=== PATIENT | male | born 1975 | race Caucasian/White ===

== ENCOUNTER 2017-03-18 03:14 | Observation (INO) | payer BC ==
[2017-03-18 03:25] VITALS: BMI 33.7
[2017-03-18] MEDS: ASPIRIN PO SCH ×2 (03:30→09:15)
[2017-03-18 03:42] LABS: BASOPHILS # (AUTO) 0.2 X10^3/uL (0.0-0.1); BASOPHILS % (AUTO) 1.9 % (0.2-1.0); EOSINOPHILS # (AUTO) 0.1 x10^3/uL (0.0-0.2); EOSINOPHILS % (AUTO) 1.8 % (0.9-2.9); HEMATOCRIT 45.8 % (42.0-54.0); HEMOGLOBIN 15.9 g/dL (13.5-18.0); LYMPHOCYTES # (AUTO) 2.5 X10^3/uL (1.3-2.9); MEAN CORPUSCULAR HEMOGLOBIN 28.9 pg (27.0-34.0); MEAN CORPUSCULAR HGB CONC 34.8 g/dL (33.0-35.0); MEAN CORPUSCULAR VOLUME 83.2 fL (80.0-100.0); MEAN PLATELET VOLUME 10.2 fL (7.4-11.0); MONOCYTES # (AUTO) 0.6 x10^3/uL (0.3-0.8); MONOCYTES % (AUTO) 7.8 % (0.0-13.0); NEUTROPHILS # (AUTO) 4.8 x10^3/uL (2.2-4.8); NEUTROPHILS % (AUTO) 58.5 % (42.0-75.0); PLATELET COUNT 116 X10^3/uL (150.0-450.0); RED BLOOD COUNT 5.51 X10^6/uL (4.7-6.0); RED CELL DISTRIBUTION WIDTH 14.3 % (11.6-16.5); WHITE BLOOD COUNT 8.2 X10^3/uL (3.6-10.0)
[2017-03-18] MEDS ORDERED: NITROSTAT SL PRN (03:44)
--- NOTE | 2017-03-18 03:47 | DR.CP ---
HPI - Time Seen Time seen: 03:40 - PCP Primary Care Physician: JEANNE - Complaint Chief Complaint Doctor Comments: Patient states [place] started getting mid-sternal chest pain radiating to the left arm with tingling of the fingers, pain radiated to the left jaw. There was o diaphoresis. This occured at 1700 on yesterday. He has no history of cardiopulmonary disease. There is no family history of cardiac disease. Chief Complaint:: CHEST PAIN , LEFT JAW PAIN STARTED EARLIER TODAY. NAUSEA,NO VOMITING. DENIES ANY SHORTNESS OF BREATH. - Source History Provided: Patient - Mode of Arrival Mode of Arrival: Ambulatory - Timing Onset of Chief Complaint: 03/18/17 - Location Chest Pain Radiation Location: Left Jaw, Left Shoulder, Back, Neck - Associated Signs and Symptoms Associated Signs and Symptoms: Nausea/Vomiting PMH - PMH Past Medical History: Yes Past Medical History: Dyslipidemia, GERD, Hypertension, Hyperthyroidism, PUD Past Surgical History: Yes Past Surgical History Comment: ACDIFF SURGERY IN [place]. HERNIA SURGERY AT - Family History History of Family Medical Conditions: Yes Family Medical History: Hypertension - Social History Does patient currently use any type of tobacco product: No Have you used tobacco products in the last 12 months: No Type of Tobacco Use: None Alcohol Use: None Do you use any recreational Drugs:: No Lives With: Spouse, Family Lives Where: Home - infectious screening In the last 2 months have you had wt loss of >10#?: NO Have you had fever, night sweats or hemotysis?: No Have you traveled outside the country in the last 6 months?: No Isolation: Standard ROS - Review of Systems Constitutional: See HPI. negative: Diaphoresis Eyes: No Symptoms Reported ENTM: No Symptoms Reported Respiratoy: No Symptoms Reported Cardiovascular: Chest Pain Gastrointestinal/Abdominal: No Symptoms Reported Genitourinary: No Symptoms Reported Neurological: Numbness (left hand) Musculoskeletal: No Symptoms Reported Integumentary: No Symptoms Reported Hematologic/Lymphatic: No Symptoms Reported Endocrine: See HPI (hyperthyroid) Psychiatric: No Symptoms Reported All Other Systems: Reviewed and Negative PE - Vitals Vitals: Pulse Rate [Right Brachial] 63 Pulse Rate 70 Respiratory Rate 18 Blood Pressure [Right Arm] 128/89 Blood Pressure 148/72 O2 Sat by Pulse Oximetry 98 - General Limitations: No Limitations General Appearance: Alert, In No Apparent Distress - Head Head Exam: Normal Inspection, Atraumatic - Eyes Eye exam: Normal Appearance, PERRL, EOMI - ENT ENT Exam: Normal Exam - Chest Chest Inspection: Normal Inspection - Respiratory Respiratory Exam: Normal Lung Sounds Bilat Respiratory Exam: Bilateral Clear to Auscultation - Cardiovascular Cardiovascular Exam: Regular Rate, Normal Rhythm Pulse: Normal Edema: Normal - Abdominal Exam Abdominal Exam: Normal Inspection, Normal Bowel Sounds Abdominal Tenderness: negative: RUQ, RLQ, LUQ, LLQ, Epigastrium, Suprapubic, Diffuse, Mild, Moderate, Severe, Other - Extremities Extremities Exam: Normal Inspection - Back Back Exam: Normal Inspection, Full ROM - Neurologic Neurological Exam: Alert, Oriented X3, CN II-XII Intact - Psychiatric Psychiatric Exam: Normal Affect, Normal Mood - Skin Skin Exam: Warm, Dry, Intact Course - Reevaluation 1st: Improved - Consultation Called: 06:00 Consultation Comments: No return call ROR - Labs Reviewed Result Diagrams: 03/18/17 03:35 03/18/17 03:35 Laboratory: WBC 8.2 X10^3/uL (3.6-10.0) 03/18/17 03:35 RBC 5.51 X10^6/uL (4.7-6.0) 03/18/17 03:35 Hgb 15.9 g/dL (13.5-18.0) 03/18/17 03:35 Hct 45.8 % (42.0-54.0) 03/18/17 03:35 MCV 83.2 fL (80.0-100.0) 03/18/17 03:35 MCH 28.9 pg (27.0-34.0) 03/18/17 03:35 MCHC 34.8 g/dL (33.0-35.0) 03/18/17 03:35 RDW 14.3 % (11.6-16.5) 03/18/17 03:35 Plt Count 116 X10^3/uL (150.0-450.0) L 03/18/17 03:35 MPV 10.2 fL (7.4-11.0) 03/18/17 03:35 Neut % 58.5 % (42.0-75.0) 03/18/17 03:35 Lymph % 30.0 % (21.0-51.0) 03/18/17 03:35 [place]ink % 7.8 % (0.0-13.0) 03/18/17 03:35 Eos % 1.8 % (0.9-2.9) 03/18/17 03:35 Baso % 1.9 % (0.2-1.0) H 03/18/17 03:35 Neut # 4.8 x10^3/uL (2.2-4.8) 03/18/17 03:35 Lymph # 2.5 X10^3/uL (1.3-2.9) 03/18/17 03:35 [place]ink # 0.6 x10^3/uL (0.3-0.8) 03/18/17 03:35 Eos # 0.1 x10^3/uL (0.0-0.2) 03/18/17 03:35 Baso # 0.2 X10^3/uL (0.0-0.1) H 03/18/17 03:35 Absolute Nucleated RBC 0.0 /100WBC 03/18/17 03:35 INR Target Range - 03/18/17 03:35 INR 0.96 (0.8-1.3) 03/18/17 03:35 PTT 31.8 SECONDS (22.9-36.5) 03/18/17 03:35 PTT Comment - 03/18/17 03:35 Sodium 141 mmol/L (136-145) 03/18/17 03:35 Corrected Sodium 141 mmol/L (136-145) 03/18/17 03:35 Potassium 3.7 mmol/L (3.5-5.1) 03/18/17 03:35 Chloride 106 mmol/L (98-107) 03/18/17 03:35 Carbon Dioxide 23.9 mmol/L (21-32) 03/18/17 03:35 BUN 13 mg/dL (7-18) 03/18/17 03:35 Creatinine 1.06 mg/dL (0.70-1.30) 03/18/17 03:35 Est GFR (MDRD) Af Amer > 60 (>60) 03/18/17 03:35 Est GFR (MDRD) Non-Af > 60 (>60) 03/18/17 03:35 Glucose 120 mg/dL (65-99) H 03/18/17 03:35 Calcium 8.8 mg/dL (8.5-10.1) 03/18/17 03:35 Corrected Calcium TNP 03/18/17 03:35 Magnesium 1.8 mg/dL (1.7-2.9) 03/18/17 03:35 Total Bilirubin 0.30 mg/dL (0.2-1.0) 03/18/17 03:35 AST 22 Units/L (15-37) 03/18/17 03:35 ALT 45 Units/L (12-78) 03/18/17 03:35 Alkaline Phosphatase 86 Units/L (46-116) 03/18/17 03:35 Creatine Kinase 231 Units/L (39-308) 03/18/17 03:35 CK-MB (CK-2) 1.8 ng/mL (0-4.0) 03/18/17 03:35 CK/CKMB % Calc 0.8 % (<4) 03/18/17 03:35 Troponin I < 0.02 ng/mL (0-1.5) 03/18/17 03:35 Total Protein 6.8 g/dL (6.4-8.2) 03/18/17 03:35 Albumin 3.7 g/dL (3.4-5.0) 03/18/17 03:35 Globulin 3.1 g/dL (2.5-4.5) 03/18/17 03:35 Albumin/Globulin Ratio 1.2 Ratio (1.1-2.1) 03/18/17 03:35 Triglycerides Cancelled 03/18/17 03:35 Cholesterol Cancelled 03/18/17 03:35 LDL Cholesterol, Calc Cancelled 03/18/17 03:35 HDL Cholesterol Cancelled 03/18/17 03:35 Cholesterol/HDL Ratio Cancelled 03/18/17 03:35 - XRAY XRAY Interpreted by: Radiologist (Chest; No acute cardiopulmonary abnormality) - Diagnosis Discharge Problem: Chest pain Qualifiers: Chest pain type: unspecified Qualified Code(s): R07.9 - Chest pain, unspecified - Discharge Plan Condition: Stable - Follow ups/Referrals Follow ups/Referrals: Marv Polo [Primary Care Provider] - 3 days - Instructions
[2017-03-18 03:48] LABS: BLOOD UREA NITROGEN 13 mg/dL (7-18); CALCIUM 8.8 mg/dL (8.5-10.1); CARBON DIOXIDE 23.9 mmol/L (21-32); CHLORIDE 106 mmol/L (98-107); COR NA(FOR HYPERGLY) 141 mmol/L (136-145); CREATININE 1.06 mg/dL (0.70-1.30); SODIUM 141 mmol/L (136-145); eGFR BLACK RACES > 60 (>60); eGFR NON BLACK RACES > 60 (>60)
[2017-03-18 04:01] LABS: ALANINE AMINOTRANSFERASE 45 Units/L (12-78); ALBUMIN 3.7 g/dL (3.4-5.0); ALKALINE PHOSPHATASE 86 Units/L (46-116); ASPARTATE AMINO TRANSFERASE 22 Units/L (15-37); MAGNESIUM 1.8 mg/dL (1.7-2.9); TOTAL PROTEIN 6.8 g/dL (6.4-8.2)
[2017-03-18 04:09] LABS: CKMB % 0.8 % (<4); CREATINE KINASE 231 Units/L (39-308); CREATINE KINASE MB 1.8 ng/mL (0-4.0); TROPONIN I < 0.02 ng/mL (0-1.5)
--- NOTE | 2017-03-18 05:30 | RAD ---
AP chest Indication: Chest pain Findings: Lungs are clear and heart size is normal. No pleural effusion or pneumothorax. Trachea is m idline. No acute osseous abnormality. Impression: No acute cardiopulmonary abnormality. Reported By:
[2017-03-18] MEDS ORDERED: ZOFRAN INJ 4 MG VIAL IVP PRN (07:19)
[2017-03-18] MEDS ORDERED: PATIENT'S HOME MEDICATION (Omeprazole [Omeprazole] 40 MG) PO SCH (09:00)
[2017-03-18] MEDS ORDERED: ZESTRIL TAB 5 MG PO SCH ×2 (09:00→21:00)
[2017-03-18] MEDS ORDERED: PATIENT'S HOME MEDICATION (Fenofibrate [Fenofibrate] 54 MG) PO SCH ×2 (09:00→21:00)
[2017-03-18] MEDS ORDERED: SYNTHROID 50 mcg TAB PO SCH (09:00)
[2017-03-18] MEDS ORDERED: PriLOSEC PO SCH (09:00)
[2017-03-18 10:39] LABS: CKMB % 0.6 % (<4); CREATINE KINASE 189 Units/L (39-308); CREATINE KINASE MB 1.2 ng/mL (0-4.0); TROPONIN I < 0.02 ng/mL (0-1.5)
[2017-03-18] MEDS: MORPHINE SULFATE INJ 2 MG INJ IVP PRN ×2 (10:39→15:35)
[2017-03-18] MEDS ORDERED: SINGULAIR TAB 10 MG PO SCH (12:00)
[2017-03-18] MEDS ORDERED: FLUVIRIN IM ONE (12:23)
[2017-03-18 15:59] LABS: CKMB % 0.8 % (<4); CREATINE KINASE 169 Units/L (39-308); CREATINE KINASE MB 1.3 ng/mL (0-4.0); TROPONIN I < 0.02 ng/mL (0-1.5)
[2017-03-18 16:21] VITALS: BP 142/95
== END 2017-03-18 18:45 | disposition short-term general hospital (02) ==
LOC: ER 03:14 → MED/SURG 07:06
PROVIDERS: ADMIT Internal Medicine; ATTEND Internal Medicine
DX: R07.89 Other chest pain (principal); R68.84 Jaw pain; I10 Essential (primary) hypertension
CPT/HCPCS: 36415; 71010; 80053; 82550; 82553; 83735; 84484; 85025; 85610; 85730; 90686; 93005; 94760; 96365; 99218; 99284; A4216; G0378; J2270

== ENCOUNTER 2023-08-16 15:40 | Observation (INO) ==
--- NOTE | 2023-08-16 16:22 | DR.ABDMALE ---
HPI Time seen Time Seen by Provider: 08/16/23 16:21 PCP Primary Care Physician: wang Morris Chief Complaint Doctors Comments: 48 y/o male presents with worsening hernia problems. Has a history of left inguinal hernia over the past several months. Has noticed has been swelling more over the last few days. Having discomfort of the left little hernia region, also of the left lower quadrant of the abdomen.. Pain is dull, off-and-on, worse with palpation and movement. Nothing makes better. Denies any associated fever, chills, nausea, vomiting. States he has been more constipated recently.. No urinary issues.. No URI symptoms. Last saw Dr. Mayfield several months ago. Chief Complaint:: patient states a week ago he notice a little discomfort with his inguinal hernia states it continue to get worse and the other day he notice it bulging he states he tried to push it back in but has not been successful. he also has had some LLQ spasms he feels like decribed by the patient. no n/v/d. Had a normal BM today. COVID-19 Coronavirus risk:travel/contact w/high risk person: No Has patient experienced Coronavirus symptoms: No Reviewed Nurses Notes Review: Yes Source History provided by:: patient Mode of arrival Mode of Arrival: Ambulatory Timing Onset of Chief Complaint: 08/08/23 PMH PMH Past Medical History: Yes Past Medical History: Dyslipidemia, GERD, Hypertension, Hyperthyroidism and PUD Past Medical History Comment: a-fib Past Surgical History: Yes Surgical History: Other Past Surgical History Comment: ACDF, shoulder scope Family History History of Family Medical Conditions: Yes Family Medical History: Diabetes Mellitus, Cancer, [place] and Hypertension Social History Does patient currently use any type of tobacco product: No Have you used tobacco products in the last 12 months: No Type of Tobacco Use: None Does any household member use tobacco: No Alcohol Use: None Do you use any recreational Drugs:: No Lives With: Family Lives Where: Home Travel Risk Coronavirus risk:travel/contact w/high risk person: No Has patient experienced Coronavirus symptoms: No Infectious screening In the last 2 months have you had wt loss of >10#?: NO Have you had fever, night sweats or hemotysis?: No Have you traveled outside the country in the last 6 months?: No Isolation: Standard ROS Review of Systems Constitutional: No Symptoms Reported Eyes: No Symptoms Reported ENTM: No Symptoms Reported Respiratoy: No Symptoms Reported Cardiovascular: No Symptoms Reported Gastrointestinal/Abdominal: See HPI Genitourinary: No Symptoms Reported Neurological: No Symptoms Reported Musculoskeletal: No Symptoms Reported Integumentary: No Symptoms Reported Hematologic/Lymphatic: No Symptoms Reported All Other Systems: Reviewed and Negative PE Vital Signs Vital Signs: Temp Pulse Resp BP Pulse Ox O2 Del Method 08/16/23 16:33 20 08/16/23 15:49 97.9 F 84 20 121/73 95 Room Air General General Appearance: Alert and In No Apparent Distress Eyes Eye exam: PERRL and EOMI ENT ENT Exam: Mucous Membranes Moist Neck Neck Exam: Normal Inspection Respiratory Respiratory Exam: Normal Lung Sounds Bilat; negative Accessory Muscle Use or Respiratory Distress Cardiovascular Cardiovascular Exam: Regular Rate, Normal Rhythm and Normal Heart Sounds Abdominal Exam Abdominal Exam: Normal Bowel Sounds, Soft and Tenderness (LLQ, L inguinal region. + L inguinal hernia, soft , but not reducible. + worsens with Valsalva. + tender LLQ, no guarding or rebound.) Back Back Exam: Normal Inspection; negative (R) CVA Tenderness or (L) CVA Tenderness Extremeties Extremities Exam: Normal Inspection; negative Edema Neurologic Neurological Exam: Alert, Oriented X3 and CN II-XII Intact; negative Motor Sensory Deficit Skin Skin Exam: Warm and Dry COURSE Treatment Treatment: 48-year-old male presents with worsening left inguinal hernia, left lower quadrant pain. Does not appear to have a incarcerated hernia with bowel involved. Workup initiated. Patient given IV fluids, IV Toradol. Dr Tran branch onsulted, came and examined the patient. Believes there is incarceration to the left inguinal hernia, will admit and plan on operating tomorrow. CT abd/pelvis performed. + inguinal hernia, probable fat trapping. ROR Labs Reviewed Laboratory Results Reviewed?: Yes 08/16/23 16:50 08/16/23 16:50 Laboratory: WBC 6.9 X10^3/uL (3.6-10.0) 08/16/23 16:50 RBC 5.33 X10^6/uL (4.7-6.0) 08/16/23 16:50 Hgb 15.0 g/dL (13.5-18.0) 08/16/23 16:50 Hct 44.1 % (42.0-54.0) 08/16/23 16:50 MCV 82.8 fL (80.0-100.0) 08/16/23 16:50 MCH 28.1 pg (27.0-34.0) 08/16/23 16:50 MCHC 33.9 g/dL (33.0-35.0) 08/16/23 16:50 RDW 14.5 % (11.6-16.5) 08/16/23 16:50 Plt Count 137 X10^3/uL (150.0-450.0) L 08/16/23 16:50 MPV 10.2 fL (7.4-11.0) 08/16/23 16:50 Neut % (Auto) 54.4 % (42.0-75.0) 08/16/23 16:50 Lymph % (Auto) 30.0 % (21.0-51.0) 08/16/23 16:50 [place]th % (Auto) 11.9 % (0.0-13.0) 08/16/23 16:50 Eos % (Auto) 2.2 % (0.9-2.9) 08/16/23 16:50 Baso % (Auto) 1.5 % (0.2-1.0) H 08/16/23 16:50 Neut # (Auto) 3.8 x10^3/uL (2.2-4.8) 08/16/23 16:50 Lymph # (Auto) 2.1 X10^3/uL (1.3-2.9) 08/16/23 16:50 [place]th # (Auto) 0.8 x10^3/uL (0.3-0.8) 08/16/23 16:50 Eos # (Auto) 0.2 x10^3/uL (0.0-0.2) 08/16/23 16:50 Baso # (Auto) 0.1 X10^3/uL (0.0-0.1) 08/16/23 16:50 Absolute Nucleated RBC 0.1 /100WBC 08/16/23 16:50 PT 13.6 SECONDS (11.8-14.3) 08/16/23 17:10 INR Target Range - 08/16/23 17:10 INR 1.06 (0.8-1.3) 08/16/23 17:10 APTT 34.3 SECONDS (22.9-36.5) 08/16/23 17:10 PTT Comment - 08/16/23 17:10 Sodium 139 mmol/L (136-145) 08/16/23 16:50 Corrected Sodium TNP 08/16/23 16:50 Potassium 3.7 mmol/L (3.5-5.1) 08/16/23 16:50 Chloride 105 mmol/L (98-107) 08/16/23 16:50 Carbon Dioxide 24.2 mmol/L (21-32) 08/16/23 16:50 BUN 10 mg/dL (7-18) 08/16/23 16:50 Creatinine 0.74 mg/dL (0.70-1.30) 08/16/23 16:50 Est GFR (MDRD) Af Amer > 60 (>60) 08/16/23 16:50 Est GFR (MDRD) Non-Af > 60 (>60) 08/16/23 16:50 Glucose 99 mg/dL (65-99) 08/16/23 16:50 Calcium 8.2 mg/dL (8.5-10.1) L 08/16/23 16:50 Corrected Calcium 8.9 mg/dL (8.5-10.1) 08/16/23 16:50 Total Bilirubin 0.40 mg/dL (0.2-1.0) 08/16/23 16:50 AST 162 Units/L (15-37) H 08/16/23 16:50 ALT 83 Units/L (12-78) H 08/16/23 16:50 Alkaline Phosphatase 99 Units/L (46-116) 08/16/23 16:50 Total Protein 6.4 g/dL (6.4-8.2) 08/16/23 16:50 Albumin 3.1 g/dL (3.4-5.0) L 08/16/23 16:50 Globulin 3.3 g/dL (2.5-4.5) 08/16/23 16:50 Albumin/Globulin Ratio 0.9 Ratio (1.1-2.1) L 08/16/23 16:50 Lipase 26 Units/L (16-77) 08/16/23 16:50 Specimen Type Clean catch urine 08/16/23 16:20 Urine Color Yellow (YELLOW) 08/16/23 16:20 Urine Appearance Clear (CLEAR) 08/16/23 16:20 Urine pH 6.0 (5.0 - 8.0) 08/16/23 16:20 Ur Specific [place] 1.030 (1.000-1.030) 08/16/23 16:20 Urine Protein 1+ (NEGATIVE) 08/16/23 16:20 Urine Glucose (UA) Negative (NEGATIVE) 08/16/23 16:20 Urine Ketones Negative (NEGATIVE) 08/16/23 16:20 Urine Blood Negative (NEGATIVE) 08/16/23 16:20 Urine Nitrite Negative (NEGATIVE) 08/16/23 16:20 Urine Bilirubin Negative (NEGATIVE) 08/16/23 16:20 Urine Urobilinogen 1+ (NORMAL) 08/16/23 16:20 Ur Leukocyte Esterase Negative (NEGATIVE) 08/16/23 16:20 Urine RBC 0-2 /HPF (0-3) 08/16/23 16:20 Urine WBC 0-2 /HPF (0-5) 08/16/23 16:20 Ur Squamous Epith Cells Negative /HPF (NEGATIVE) 08/16/23 16:20 Urine Bacteria Trace /HPF (NEGATIVE) 08/16/23 16:20 Urine Mucus Rare /HPF (NEGATIVE) 08/16/23 16:20 Ur Culture Indicated? No/not indicated 08/16/23 16:20 Labs acceptable. EKG Rate: 69 [place]: Normal Rhythm: NSR ST: Normal Opioid Opioid Risk Tool Age ([place] box if 16-45): No History of Preadolescent Sexual Abuse: No Total: 0 Total Score Risk Category: Low Risk Copyright: Palmer FLORES predicting aberrant behaviors Discharge Plan Diagnosis Discharge Problem: Incarcerated left inguinal hernia Discharge Plan Patient Disposition: 09 ADMITTED INPATIENT Condition: Stable Orders to Discharge Patient Discharge Orders: Transfer (Routine); Ordered 08/16/23 Ordered By: August Soto
[2023-08-16 16:31] LABS: BILIRUBIN,URINE NEGATIVE (NEGATIVE); BLOOD/HEMOGLOBIN,URINE NEGATIVE (NEGATIVE); GLUCOSE, URINE NEGATIVE (NEGATIVE); KETONES,URINE NEGATIVE (NEGATIVE); LEUKOCYTE ESTERASE ,URINE NEGATIVE (NEGATIVE); NITRITES,URINE NEGATIVE (NEGATIVE); PROTEIN,URINE 1+ (NEGATIVE); UROBILINOGEN,URINE 1+ (NORMAL)
[2023-08-16] MEDS: NS 1,000 ML IV 1,000 ML IV ONE (16:33)
[2023-08-16] MEDS: TORADOL 30 MG VIAL IVP ONE (16:33)
[2023-08-16 16:45] LABS: APPEARANCE,URINE CLEAR (CLEAR); COLOR,URINE YELLOW (YELLOW)
[2023-08-16 17:01] LABS: RBC,URINE 0-2 /HPF (0-3)
[2023-08-16 17:02] LABS: BACTERIA,URINE TRACE /HPF (NEGATIVE); SQUAMOUS EPITHELIAL CELL,UR NEGATIVE /HPF (NEGATIVE)
--- NOTE | 2023-08-16 17:31 | EKG ---
Test Reason : pre-op Blood Pressure : */* mmHG Vent. Rate : 69 BPM Atrial Rate : 69 BPM P-R Int : 182 ms QRS Dur : 92 ms QT Int : 424 ms P-R-T Axes : 39 24 15 degrees QTc Int : 454 ms Normal sinus rhythm Normal ECG No previous ECGs available Confirmed by Deuce Man MD ([id number]) on 08/17/2023 8:02:29 AM Referred By: Confirmed By: Deuce Man MD
[2023-08-16 17:37] LABS: BASOPHILS # (AUTO) 0.1 X10^3/uL (0.0-0.1); BASOPHILS % (AUTO) 1.5 % (0.2-1.0); EOSINOPHILS # (AUTO) 0.2 x10^3/uL (0.0-0.2); EOSINOPHILS % (AUTO) 2.2 % (0.9-2.9); HEMATOCRIT 44.1 % (42.0-54.0); LYMPHOCYTES # (AUTO) 2.1 X10^3/uL (1.3-2.9); MEAN CORPUSCULAR HEMOGLOBIN 28.1 pg (27.0-34.0); MEAN CORPUSCULAR HGB CONC 33.9 g/dL (33.0-35.0); MEAN CORPUSCULAR VOLUME 82.8 fL (80.0-100.0); MEAN PLATELET VOLUME 10.2 fL (7.4-11.0); MONOCYTES # (AUTO) 0.8 x10^3/uL (0.3-0.8); MONOCYTES % (AUTO) 11.9 % (0.0-13.0); NEUTROPHILS # (AUTO) 3.8 x10^3/uL (2.2-4.8); NEUTROPHILS % (AUTO) 54.4 % (42.0-75.0); PLATELET COUNT 137 X10^3/uL (150.0-450.0); RED BLOOD COUNT 5.33 X10^6/uL (4.7-6.0); RED CELL DISTRIBUTION WIDTH 14.5 % (11.6-16.5); WHITE BLOOD COUNT 6.9 X10^3/uL (3.6-10.0)
[2023-08-16 17:48] LABS: INR 1.06 (0.8-1.3)
[2023-08-16 17:48] LABS: ALANINE AMINOTRANSFERASE 83 Units/L (12-78); ALBUMIN 3.1 g/dL (3.4-5.0); ALKALINE PHOSPHATASE 99 Units/L (46-116); ASPARTATE AMINO TRANSFERASE 162 Units/L (15-37); BLOOD UREA NITROGEN 10 mg/dL (7-18); CALCIUM 8.2 mg/dL (8.5-10.1); CARBON DIOXIDE 24.2 mmol/L (21-32); CHLORIDE 105 mmol/L (98-107); COR CA(FOR HYPOALB) 8.9 mg/dL (8.5-10.1); CREATININE 0.74 mg/dL (0.70-1.30); LIPASE 26 Units/L (16-77); SODIUM 139 mmol/L (136-145); TOTAL PROTEIN 6.4 g/dL (6.4-8.2); eGFR NON BLACK RACES > 60 (>60)
[2023-08-16 17:51] LABS: GLUCOSE 99 mg/dL (65-99); POTASSIUM 3.7 mmol/L (3.5-5.1)
[2023-08-16] MEDS: D5 1/2 NS 1,000 ML 1,000 ML IV SCH (18:53)
--- NOTE | 2023-08-16 19:48 | CT ---
EXAM:ABDCMEN/PELVIS WITH CONHISTORY:week ago he notice a little discomfort with his inguinal hernia states it continue to get worse and the other day he notice it bulging he states he tried to push it back in but has not been successful.;COMPARISON:September 08, 2022TECHNIQUE:Axial CT images of the abdomen and pelvis were obtained after the administration of 100 mL Omnipaque IV contrast and reformatted into coronal and sagittal planes for further evaluation.Radiation dose: 907.58 mGy-cm total DLPFINDINGS:Lung bases are clear.Stomach appears normal.Tiny hepatic cysts.Spleen, pancreas and adrenal glands are unremarkable.Small stones or sludge in the dependent portion of the gallbladder with no overt imaging findings of acute cholecystitis.No intra or extrahepatic biliary dilatation.Homogeneous enhancement of the kidneys without hydronephrosis or hydroureter.Unremarkable appearance of the urinary bladder.Imaged reproductive structures are unremarkable.Colonic diverticulosis without diverticulitis.Otherwise, unremarkable appearance of the small and large bowel.No evidence of acute appendicitis.No pneumoperitoneum.No significant fluid collection.No adenopathy.No acute osseous abnormality.Small right and large left fat containing inguinal hernias without inflammatory changes.IMPRESSION:1. No acute intra-abdominal abnormality detected.2. Small right and large left fat containing inguinal hernias without inflammatory changes.3. Small stones or sludge in the dependent portion of the gallbladder with no imaging findings of acute cholecystitis.4. Colonic diverticulosis without diverticulitis.THIS IS AN ELECTRONICALLY VERIFIED FINAL REPORT08/16/2023 7:45 PM - Electronically signed by Jimbo Kaur MD
[2023-08-16 20:14] VITALS: BMI 38.1
[2023-08-16] MEDS: CONSULT PHARMACY - POTASSIUM & MAGNESIUM XX SCH (20:17)
[2023-08-16] MEDS: OMNIPAQUE 350 mg/mL 100 mL BTL 100 ML ONE (20:17)
[2023-08-16] MEDS: K-DUR TAB 20 MEQ PO ONE (20:24)
--- NOTE | 2023-08-16 21:40 | RAD ---
EXAM: CHEST, 1 VIEW HISTORY: PRE OP FOR HERNIA SX; COMPARISON: Chest radiographs dated 2017 FINDINGS: The trachea is midline. The cardiac silhouette is unremarkable. The lungs are clear without focal in filtrate or effusion. The bony thorax is unremarkable. Overall, the examination is stable compared to the prior study. IMPRESSION: No acute cardiopulmonary disease. THIS IS AN ELECTRONICALLY VERIFIED FINAL REPORT 08/16/2023 9:34 PM - Electronically signed by Jake Monahan
[2023-08-16] MEDS: HIBICLENS WASH EXT ONE (22:53)
[2023-08-16] MEDS: PROPAFENONE HCL PO SCH (23:35)
[2023-08-17] MEDS: SYNTHROID 50 mcg TAB PO SCH (05:53)
[2023-08-17 06:10] LABS: BASOPHILS % (AUTO) 0.8 % (0.2-1.0); EOSINOPHILS # (AUTO) 0.2 x10^3/uL (0.0-0.2); EOSINOPHILS % (AUTO) 3.2 % (0.9-2.9); HEMATOCRIT 41.6 % (42.0-54.0); HEMOGLOBIN 13.9 g/dL (13.5-18.0); LYMPHOCYTES # (AUTO) 1.2 X10^3/uL (1.3-2.9); LYMPHOCYTES % (AUTO) 18.9 % (21.0-51.0); MEAN CORPUSCULAR HGB CONC 33.5 g/dL (33.0-35.0); MEAN CORPUSCULAR VOLUME 83.6 fL (80.0-100.0); MEAN PLATELET VOLUME 10.3 fL (7.4-11.0); MONOCYTES # (AUTO) 0.9 x10^3/uL (0.3-0.8); MONOCYTES % (AUTO) 13.4 % (0.0-13.0); NEUTROPHILS # (AUTO) 4.2 x10^3/uL (2.2-4.8); NEUTROPHILS % (AUTO) 63.7 % (42.0-75.0); PLATELET COUNT 119 X10^3/uL (150.0-450.0); RED BLOOD COUNT 4.97 X10^6/uL (4.7-6.0); RED CELL DISTRIBUTION WIDTH 14.3 % (11.6-16.5); WHITE BLOOD COUNT 6.6 X10^3/uL (3.6-10.0)
[2023-08-17 06:19] LABS: ALANINE AMINOTRANSFERASE 80 Units/L (12-78); ALBUMIN 2.8 g/dL (3.4-5.0); ALKALINE PHOSPHATASE 91 Units/L (46-116); ASPARTATE AMINO TRANSFERASE 138 Units/L (15-37); BLOOD UREA NITROGEN 11 mg/dL (7-18); CALCIUM 8.2 mg/dL (8.5-10.1); CARBON DIOXIDE 25.4 mmol/L (21-32); CHLORIDE 107 mmol/L (98-107); COR CA(FOR HYPOALB) 9.2 mg/dL (8.5-10.1); COR NA(FOR HYPERGLY) 140 mmol/L (136-145); CREATININE 0.71 mg/dL (0.70-1.30); GLUCOSE 118 mg/dL (65-99); POTASSIUM 3.7 mmol/L (3.5-5.1); SODIUM 140 mmol/L (136-145); eGFR NON BLACK RACES > 60 (>60)
[2023-08-17] MEDS ORDERED: CONSULT PHARMACY - POTASSIUM & MAGNESIUM XX SCH (07:00)
[2023-08-17] MEDS: CARDIZEM CD 180 MG 24-HR PO SCH (09:52)
[2023-08-17] MEDS: K-RIDER 10 MEQ/100 ML WATER 10 MEQ/100 ML BAG IV SCH (09:59)
[2023-08-17] MEDS: COZAAR PO SCH (10:00)
[2023-08-17] MEDS: LIPITOR TAB 40 MG PO SCH (10:03)
[2023-08-17] MEDS: ZESTRIL TAB 10 MG PO SCH (10:03)
[2023-08-17] MEDS: PATIENT'S HOME MEDICATION PO SCH (10:03)
[2023-08-17] MEDS: TRANSDERM-SCOP TD ONE (10:44)
[2023-08-17] MEDS: LR 1,000 ML IV 1,000 ML IV ONE (11:11)
[2023-08-17] MEDS: MAGNESIUM SULFATE 50% INJ VIAL ONE (11:24)
[2023-08-17] MEDS: DECADRON INJ ONE (11:24)
[2023-08-17] MEDS: ZEMURON 100 MG VIAL ONE (11:24)
[2023-08-17] MEDS: ROBINUL ONE (11:24)
[2023-08-17] MEDS: PRECEDEX INJ VIAL ONE (11:24)
[2023-08-17] MEDS: PHENERGAN INJ 25 MG IM ONE (11:24)
[2023-08-17] MEDS: DIPRIVAN VIAL 20 ML ONE (11:24)
[2023-08-17] MEDS: PEPCID 20 MG VIAL ONE (11:24)
[2023-08-17] MEDS: BRIDION ONE (11:24)
[2023-08-17] MEDS: DILAUDID INJ ONE (11:25)
[2023-08-17] MEDS: VERSED ONE (11:25)
[2023-08-17] MEDS: NS 100 ML IV 100 ML ONE (11:25)
[2023-08-17] MEDS: ANCEF VIAL 1 GRAM ONE (11:26)
[2023-08-17] MEDS: QUELICIN (OR ANECTINE) ONE (11:29)
[2023-08-17] MEDS ORDERED: SUPRANE ONE (11:34)
[2023-08-17] MEDS: MARCAINE 0.5% ONE (11:34)
[2023-08-17] MEDS: POLYMYXIN B SULFATE ONE (11:35)
[2023-08-17] MEDS ORDERED: KETAMINE HCL ONE (11:37)
[2023-08-17] MEDS ORDERED: REGLAN INJ 10 MG VIAL IVP PRN (13:26)
[2023-08-17] MEDS ORDERED: DILAUDID INJ IVP PRN (13:26)
[2023-08-17] MEDS ORDERED: BENADRYL INJ 50 MG VIAL IVP PRN (13:26)
[2023-08-17] MEDS: DILAUDID INJ IVP PRN (15:17)
[2023-08-17] MEDS: ZOFRAN INJ 4 MG VIAL IVP PRN (20:03)
[2023-08-18 06:00] VITALS: RESP 18
[2023-08-18 06:18] LABS: BASOPHILS # (AUTO) 0.1 X10^3/uL (0.0-0.1); BASOPHILS % (AUTO) 0.3 % (0.2-1.0); EOSINOPHILS % (AUTO) 0.2 % (0.9-2.9); HEMATOCRIT 42.2 % (42.0-54.0); HEMOGLOBIN 14.2 g/dL (13.5-18.0); LYMPHOCYTES # (AUTO) 1.2 X10^3/uL (1.3-2.9); LYMPHOCYTES % (AUTO) 6.9 % (21.0-51.0); MEAN CORPUSCULAR HGB CONC 33.6 g/dL (33.0-35.0); MEAN CORPUSCULAR VOLUME 83.2 fL (80.0-100.0); MEAN PLATELET VOLUME 10.3 fL (7.4-11.0); MONOCYTES % (AUTO) 6.2 % (0.0-13.0); NEUTROPHILS # (AUTO) 14.4 x10^3/uL (2.2-4.8); NEUTROPHILS % (AUTO) 86.4 % (42.0-75.0); PLATELET COUNT 137 X10^3/uL (150.0-450.0); RED BLOOD COUNT 5.07 X10^6/uL (4.7-6.0); RED CELL DISTRIBUTION WIDTH 14.2 % (11.6-16.5); WHITE BLOOD COUNT 16.7 X10^3/uL (3.6-10.0)
[2023-08-18 06:31] LABS: ALANINE AMINOTRANSFERASE 78 Units/L (12-78); ALBUMIN 2.9 g/dL (3.4-5.0); ALKALINE PHOSPHATASE 90 Units/L (46-116); ASPARTATE AMINO TRANSFERASE 101 Units/L (15-37); BLOOD UREA NITROGEN 8 mg/dL (7-18); CALCIUM 8.4 mg/dL (8.5-10.1); CARBON DIOXIDE 23.8 mmol/L (21-32); CHLORIDE 103 mmol/L (98-107); COR CA(FOR HYPOALB) 9.3 mg/dL (8.5-10.1); COR NA(FOR HYPERGLY) 139 mmol/L (136-145); CREATININE 0.79 mg/dL (0.70-1.30); GLUCOSE 168 mg/dL (65-99); POTASSIUM 4.1 mmol/L (3.5-5.1); SODIUM 137 mmol/L (136-145); TOTAL PROTEIN 6.3 g/dL (6.4-8.2); eGFR NON BLACK RACES > 60 (>60)
[2023-08-18] MEDS ORDERED: CONSULT PHARMACY - POTASSIUM & MAGNESIUM XX SCH (07:00)
[2023-08-18] MEDS: STERILE WATER IRRIGATION IR ONE (07:08)
[2023-08-18] MEDS: MAG-OX TAB PO SCH (08:15)
[2023-08-18 08:24] VITALS: BP 133/70; PULSE 64; TEMP 98; O2SAT 95
== END 2023-08-18 09:25 | disposition home or self-care (01) ==
LOC: SUPCPDRO → MED/SURG 15:40 → ER 15:40 → MED/SURG 20:00
PROVIDERS: ADMIT Surgery; ATTEND Surgery
DX: I48.91 Unspecified atrial fibrillation; K27.9 Peptic ulcer, site unspecified, unspecified as acute or chronic, without hemorrhage or perforation; K21.9 Gastro-esophageal reflux disease without esophagitis; Z79.01 Long term (current) use of anticoagulants; R10.32 Left lower quadrant pain; E03.8 Other specified hypothyroidism; I10 Essential (primary) hypertension; E78.5 Hyperlipidemia, unspecified; Z01.810 Encounter for preprocedural cardiovascular examination; Z68.38 Body mass index [BMI] 38.0-38.9, adult; K40.01 Bilateral inguinal hernia, with obstruction, without gangrene, recurrent; K57.30 Diverticulosis of large intestine without perforation or abscess without bleeding; E66.8 Other obesity